=== PATIENT | male | born 1955 | race Caucasian/White ===

== ENCOUNTER 2017-02-10 22:12 | Emergency (ER) | payer SELFPAY ==
[~2017-02-10] VITALS: Ht 162.6 cm; Wt 63.0 kg
[~2017-02-10 22:12] MED LIST: LISINOPRIL40 MG PO; MOTRIN800 MG PO; ULTRACET1 TABLET PO; VALIUM5 MG PO
[2017-02-11] MEDS ORDERED: MOTRIN600 MG PO (01:21)
[2017-02-11] MEDS ORDERED: AMOXICILLIN875 MG PO (01:21)
[2017-02-11 01:30] VITALS: BP 134/82
== END 2017-02-11 01:30 | disposition home or self-care (01) ==
LOC: EME 22:12
DX: J02.9 Acute pharyngitis, unspecified (principal); I10 Essential (primary) hypertension; Z72.0 Tobacco use
CPT/HCPCS: 99281; 99283; J1885

== ENCOUNTER 2017-06-09 03:28 | Emergency (ER) | payer SELFPAY ==
[~2017-06-09] VITALS: Ht 162.6 cm; Wt 64.4 kg
[~2017-06-09 03:28] MED LIST changes: +AMOXICILLIN875 MG PO; +MOTRIN600 MG PO
[2017-06-09] MEDS ORDERED: VALIUM5 MG PO (05:26)
[2017-06-09] MEDS ORDERED: MEDROL DOSEPAK4 MG PO (05:26)
[2017-06-09 06:08] VITALS: BP 117/87
== END 2017-06-09 06:09 | disposition home or self-care (01) ==
LOC: EME 03:28
DX: M54.12 Radiculopathy, cervical region (principal); F17.200 Nicotine dependence, unspecified, uncomplicated
CPT/HCPCS: 72125; 99281; 99283

== ENCOUNTER 2017-07-28 13:02 | Emergency (ER) | payer SELFPAY ==
[~2017-07-28] VITALS: Ht 162.6 cm; Wt 62.2 kg
[~2017-07-28 13:02] MED LIST changes: +MEDROL DOSEPAK4 MG PO
[2017-07-28 15:17] LABS: HEMATOCRIT 44.7 % (38.0-50.0); HEMOGLOBIN 15.6 G/DL (12.5-16.6); MCH 31.8 PG (29.0-34.0); MCHC 34.9 G/DL (30.0-36.0); MCV 91.2 FL (86-99); PLATELET COUNT 222 K/uL (156-360); RBC DIS.WIDTH-CV 12.4 % (11.8-14.6); RBC DIS.WIDTH-SD 41.5 % (39-53); WHITE BLOOD COUNT 10.5 K/uL (4.1-10.2)
[2017-07-28 15:41] LABS: C-REACTIVE PROTEIN 81.1 MG/L (0-10)
[2017-07-28 17:35] LABS: ERTH.SED.RATE 37 MM/HR (0-20)
[2017-07-29 01:08] LABS: APPEARANCE SL.HAZY/YELLOW; RED CELL COUNT 0 /MM^3 (0-1); WHITE CELL COUNT 68250 /MM^3 (0-200.0)
[2017-07-29 01:10] LABS: MONONUCLEAR WBC'S 0 %; POLYNUCLEAR WBC'S 98 % (0-25); SYNOVIAL FLUID EOSINOPHILS 2 % (0-25)
[2017-07-29] MEDS ORDERED: PREDNISONE20 MG PO (01:47)
[2017-07-29 02:07] VITALS: BP 118/61
[2017-07-29 06:47] LABS: CRYSTALS NO CRYSTALS SEEN
== END 2017-07-29 02:07 | disposition home or self-care (01) ==
LOC: EME 13:02
PROVIDERS: Physician Assistant
DX: M25.552 Pain in left hip (principal); M25.452 Effusion, left hip; Z87.891 Personal history of nicotine dependence; I10 Essential (primary) hypertension
CPT/HCPCS: 73221; 73502; 73719; 75989; 76882; 85027; 85652; 86038; 86140; 86430; 87205; 89051; 89060; 99281; 99285; J2270; J7512

== ENCOUNTER 2017-10-27 17:47 | Emergency (ER) | payer SELFPAY ==
[~2017-10-27] VITALS: Ht 152.4 cm; Wt 62.0 kg
[~2017-10-27 17:47] MED LIST changes: +PREDNISONE20 MG PO
[2017-10-27] MEDS ORDERED: PREDNISONE20 MG PO (18:56)
[2017-10-27 19:31] VITALS: BP 118/74
== END 2017-10-27 20:00 | disposition home or self-care (01) ==
LOC: EME 17:47
DX: M25.562 Pain in left knee (principal); M25.561 Pain in right knee; M54.2 Cervicalgia; M25.512 Pain in left shoulder; M06.9 Rheumatoid arthritis, unspecified; I10 Essential (primary) hypertension; E78.5 Hyperlipidemia, unspecified; Z87.891 Personal history of nicotine dependence
CPT/HCPCS: 99281; 99284; J7512